=== PATIENT | male | born 1965 | race Caucasian/White ===

== ENCOUNTER 2022-09-14 12:38 | Outpatient (OUT) | payer OTHER, SELFPAY ==
--- NOTE | 2022-09-14 12:50 | XR_ITS ---
[address] [address] Patient Name: RANULFO CARLTON MRN: [id number] date: 1965 Sex: M Assigned Patient Location: RAD Current Patient Location: [facility] Accession/Order Number: [id number] Exam Date: 09/14/2022 13:00 Report Date: 09/14/2022 13:30 At the request of: SHAIKH JERARDO Procedure: XR foreign body eye EXAMINATION: XR foreign body eye HISTORY: Foreign Body Screen For MRI COMPARISON: No relevant comparison available. FINDINGS: ORBITS: Negative for a metallic foreign body. OTHER: 70% soft tissue opacification left maxillary sinus IMPRESSION: No metallic foreign body in the orbits Electronically authenticated by: VAN MAC Date: 09/14/2022 13:30
--- NOTE | 2022-09-14 13:10 | MR_ITS ---
[address] [address] Patient Name: RANULFO CARLTON MRN: [id number] date: 1965 Sex: M Assigned Patient Location: [facility] Current Patient Location: [facility] Accession/Order Number: [id number] Exam Date: 09/14/2022 13:10 Report Date: 09/14/2022 17:16 At the request of: SHAIKH JERARDO Procedure: MR lumbar spine wo con EXAMINATION: MR lumbar spine wo con HISTORY: Lumbar Back Pain With Radiculopathy Affecting Lower Extremit COMPARISON: No relevant comparison available. TECHNIQUE: Axial, Coronal, and Sagittal CT images were created without I.V. contrast material. Dose reduction techniques were achieved by using automated exposure control and/or adjustment of mA and/or kV according to patient size and/or use of iterative reconstruction technique. FINDINGS: PARASPINAL AREA: Normal with no visible mass. BONES: Normal alignment with no acute fracture or spondylolisthesis. Mild to moderate degenerative spondylosis and facet osteoarthropathy most significant L4-S1. 1 cm area of signal abnormality L1 vertebral body. A hemangioma is favored. DISC LEVELS: 12-L1: No significant disc/facet abnormality, spinal stenosis, or foraminal stenosis. L1-L2: Early degenerative disc disease is present without focal protrusion or neural impingement. L2-L3: No significant disc/facet abnormality, spinal stenosis, or foraminal stenosis. L3-L4: No significant disc/facet abnormality, spinal stenosis, or foraminal stenosis. L4-L5: Moderate disc space narrowing and disc desiccation. Posterior broad-based disc protrusion extending posteriorly up to 2.7 mm. Moderate ligamentum flavum hypertrophy and facet osteoarthropathy. Moderate narrowing of the right neural foramen, sagittal image 11 and 12. No left foraminal stenosis L5-S1: Moderate to severe disc space narrowing and disc desiccation. Moderate diffuse disc/osteophyte complex. Bilateral ligamentum flavum hypertrophy and facet osteophytes arthropathy. Left L5 hemilaminotomy. No central canal stenosis. Mild to moderate bilateral foraminal stenosis IMPRESSION: Degenerative changes most significant at L4-L5 and L5-S1 where there is foraminal stenosis as detailed above Electronically authenticated by: VAN MAC Date: 09/14/2022 17:16
== END 2022-09-14 12:39 ==
PROVIDERS: PCP Internal Medicine; Visit Provider Internal Medicine
DX: M54.16 Radiculopathy, lumbar region (principal)
CPT/HCPCS: 70030; 72148

== ENCOUNTER 2022-12-18 14:57 | Outpatient (OUT) | payer OTHER, SELFPAY ==
--- NOTE | 2022-12-18 15:02 | XR_ITS ---
The [address] [address] Patient Name: RANULFO CARLTON MRN: [id number] date: 1965 Sex: M Assigned Patient Location: [facility] Current Patient Location: Accession/Order Number: [id number] Exam Date: 12/18/2022 15:10 Report Date: 12/19/2022 08:53 At the request of: NON-STAFF PHYSICIAN Procedure: XR scoliosis survey EXAMINATION: XR scoliosis survey HISTORY: Spinal stenosis lumbar w/neurogenic claudication M48.062 COMPARISON: No relevant comparison available. FINDINGS: VERTEBRA: No fracture, listhesis, or abnormal wedging. DISK SPACES: No significant narrowing. CURVATURE: 7 degrees left convex curvature MEASURED FROM: C4 (cervical) superior endplate to T9 superior endplate. CURVATURE: 8 degrees convex right. MEASURED FROM: L1 superior endplate to L5 superior endplate. RISSER GRADE: 5 OTHER: Negative XR/XR scoliosis survey IMPRESSION: 1. Mild curvature of the cervicothoracic spine and lumbar spine. *Risser grades 0 to 5. Grading is based on the degree of ossification of the iliac apophysis, from grade zero (no ossification) to grade 5 (complete ossification). Electronically authenticated by: BLAKE ARNETT Date: 12/19/2022 08:53
== END 2022-12-18 14:58 | disposition home or self-care (01) ==
LOC: RAD 14:58
PROVIDERS: PCP Internal Medicine
DX: M48.062 Spinal stenosis, lumbar region with neurogenic claudication (principal)
CPT/HCPCS: 72082